=== PATIENT | male | born 1980 | race Two or more races ===

== ENCOUNTER 2016-12-06 17:22 | Emergency (ER) | payer OTHER ==
[~2016-12-06] VITALS: Ht 165.1 cm; Wt 64.4 kg
[2016-12-06 18:00] VITALS: BP 126/91
[2016-12-06] MEDS ORDERED: TDAP [DIPH/PERTUSSIS/TET] 0.5 ML VIAL IM ONE ×2 (19:16→19:30)
[2016-12-06] MEDS ORDERED: HYDROCODONE/APAP 10/325MG 1 EA TABLET ONE (19:16)
[2016-12-06] MEDS ORDERED: HYDROCODONE/APAP 10/325MG 1 EA TABLET PO ONE (19:30)
== END 2016-12-06 20:50 | disposition home or self-care (01) ==
LOC: ER 17:26
DX: S93.401A Sprain of unspecified ligament of right ankle, initial encounter (principal); S16.1XXA Strain of muscle, fascia and tendon at neck level, initial encounter; M54.5 Low back pain; F17.200 Nicotine dependence, unspecified, uncomplicated; V43.52XA Car driver injured in collision with other type car in traffic accident, initial encounter; Y93.89 Activity, other specified; Y92.413 State road as the place of occurrence of the external cause; Y99.8 Other external cause status
CPT/HCPCS: 72040; 72100; 73610; 90471; 90715; 99284; A4606; Z7610